=== PATIENT | female | born 2000 ===

== ENCOUNTER 2021-12-04 08:00 | Outpatient (CLI) | payer OTHER ==
[2021-12-05 04:41] LABS: BACTERIAL VAGINOSIS DNA UNRESOLVED (NEGATIVE); CANDIDA KRUSEI DNA UNRESOLVED (NEGATIVE)
[2021-12-05 04:42] LABS: CANDIDA GLABRATA DNA UNRESOLVED (NEGATIVE); CANDIDA GROUP DNA UNRESOLVED (NEGATIVE); TRICHOMONAS VAGINALIS DNA UNRESOLVED (NEGATIVE)
== END 2021-12-04 23:59 | disposition home or self-care (01) ==
LOC: LAB.N 08:00
PROVIDERS: ATTEND Family Medicine
DX: N89.8 Other specified noninflammatory disorders of vagina (principal); R30.0 Dysuria
CPT/HCPCS: 81514; 87070; 87077; 87086; 87181